=== PATIENT | female | born 1985 | race Caucasian/White ===

== ENCOUNTER 2024-01-10 20:34 | Emergency (ER) | payer BC ==
[~2024-01-10] VITALS: Ht 152.4 cm; Wt 60.8 kg
[2024-01-10 20:52] VITALS: BP_SYST 134; PULSE 124; RESP 22; TEMP 97.8; O2SAT 95
[2024-01-11] MEDS: PROCHLORPERAZINE EDISYLATE 10 MG/2 ML VIAL IM ONE (01:38)
[2024-01-11] MEDS: DIPHENHYDRAMINE INJ 50 MG/ML VIAL IM ONE (01:40)
[2024-01-11] MEDS: KETOROLAC TROMETHAMINE 60 MG/2 ML VIAL IM ONE (01:42)
[2024-01-11] MEDS ORDERED: ONDA-8 TL (04:05)
[2024-01-11] MEDS ORDERED: IBUP-1969 PO (04:05)
[2024-01-11 04:10] VITALS: BP_SYST 114; PULSE 124; RESP 18; TEMP 97.5; O2SAT 98
== END 2024-01-11 04:10 | disposition home or self-care (01) ==
LOC: SED 20:34
DX: R51.9 Headache, unspecified (principal); R11.10 Vomiting, unspecified; Z79.899 Other long term (current) drug therapy; Z79.2 Long term (current) use of antibiotics
CPT/HCPCS: 99285; 81025; 70450; 96372; J1200; J1885; J0780